=== PATIENT | male | born 1950 | race American Indian/Alaskan Native ===

== ENCOUNTER 2016-12-28 10:37 | Emergency (ER) | payer MEDICARE ==
--- NOTE | 2016-12-28 10:52 | Emergency Department Report ---
Chief Complaint: High BP Stated Complaint: ELEVATED BP/CHEST DISCOMFORT/ Time Seen by Provider: 12/28/16 10:48 - HPI History of Present Illness: PT states he had a little discomfort in his chest this morning. PT states he was concerned because his bp was elevated - ROS Review of Systems: - swelling + chest discomfort - Exam Vital Signs: Vital Signs 12/28/16 10:45 Temperature 97.9 F Pulse Rate 78 Respiratory 16 Rate Blood Pressure 161/104 O2 Sat by Pulse 100 Oximetry Physical Exam: PT looks well, non toxic. no acute resp distress gcs 15 no focal weakness MSE screening note: Focused history and physical exam performed. Due to findings the following was ordered: ekg, labs, xr ED Disposition for MSE Condition: Stable
[2016-12-28 11:14] LABS: Basophils % (Auto) 0.6 % (0.0-1.8); Eosinophils % (Auto) 3.5 % (0.0-4.3); Hematocrit 43.9 % (35.5-45.6); Hemoglobin 14.4 gm/dl (11.8-15.2); Mean Corpuscular HGB Conc 33 % (32-34); Mean Corpuscular Volume 74 fl (84-94); Platelet Count 225 K/mm3 (140-440); Red Blood Count 5.91 M/mm3 (3.65-5.03); Red Cell Distribution Width 15.1 % (13.2-15.2); White Blood Count 6.6 K/mm3 (4.5-11.0)
[2016-12-28 11:19] LABS: Mean Corpuscular Hemoglobin 24 pg (28-32)
--- NOTE | 2016-12-28 11:30 | XRay Report ---
ROUTINE CHEST, TWO VIEWS: HISTORY: chest pain. The trachea, heart, mediastinal contour, lung marsh and bony thorax are unremarkable. IMPRESSION: Unremarkable chest x-ray.
[2016-12-28 11:33] LABS: Blood Urea Nitrogen 12 mg/dL (9-20); Calcium 8.9 mg/dL (8.4-10.2); Carbon Dioxide 22 mmol/L (22-30); Glucose 100 mg/dL (75-100)
[2016-12-28 11:34] LABS: Anion Gap 19 mmol/L; Potassium 4.1 mmol/L (3.6-5.0); Sodium 136 mmol/L (137-145)
[2016-12-28] MEDS ORDERED: ASPIRIN PO ONE (15:34)
--- NOTE | 2016-12-28 17:20 | Emergency Department Report ---
ED General Adult HPI - General Chief complaint: High BP Stated complaint: ELEVATED BP/CHEST DISCOMFORT/ Time Seen by Provider: 12/28/16 10:48 Source: patient Mode of arrival: Ambulatory Limitations: No Limitations - History of Present Illness Initial comments: Patient is a 66-year-old male past medical history of diabetes and hypertension. Who presents with left arm pain. He states that he took his blood pressure this morning that was elevated. He also states that his left arm "feels tired." Patient states that symptoms are mild and that his symptoms occurred yesterday while he was at [employer]. Nothing makes his symptoms better or worse. Patient denies having any chest pain or any arm pain. He states that he's had friends who have had heart attacks and he was concerned about it and that's the reason why he is in the ED. She denies having any nausea or vomiting. Patient denies having any family history of heart attacks. Patient denies having any cardiac history. He is compliant with his diabetes and high blood pressure medication. Severity scale (0 -10): 0 - Related Data Home Medications Medication Instructions Recorded Confirmed Last Taken Unobtainable [Unobtainable] 06/15/14 06/15/14 Unknown Allergies Allergy/AdvReac Type Severity Reaction Status Date / Time No Known Allergies Allergy Unverified 06/15/14 20:06 ED Review of Systems ROS: Stated complaint: ELEVATED BP/CHEST DISCOMFORT/ Other details as noted in HPI Constitutional: denies: chills, fever Eyes: denies: eye pain, eye discharge, vision change ENT: denies: ear pain, throat pain Respiratory: denies: cough, shortness of breath, wheezing Cardiovascular: denies: chest pain, palpitations Endocrine: no symptoms reported Gastrointestinal: denies: abdominal pain, nausea, diarrhea Genitourinary: denies: urgency, dysuria Musculoskeletal: other (left arm tiredness). denies: back pain, joint swelling , arthralgia Skin: denies: rash, lesions Neurological: denies: headache, weakness, paresthesias Psychiatric: denies: anxiety, depression Hematological/Lymphatic: denies: easy bleeding, easy bruising ED Past Medical Hx - Past Medical History Hx Hypertension: Yes Hx Diabetes: Yes Additional medical history: High Cholesterol - Surgical History Past Surgical History?: No - Social History Smoking Status: Never Smoker Substance Use Type: None - Medications Home Medications: Home Medications Medication Instructions Recorded Confirmed Last Taken Type Unobtainable [Unobtainable] 06/15/14 06/15/14 Unknown History ED Physical Exam - General Limitations: No Limitations General appearance: alert, in no apparent distress - Head Head exam: Present: atraumatic, normocephalic - Eye Eye exam: Present: normal appearance - ENT ENT exam: Present: mucous membranes moist - Neck Neck exam: Present: normal inspection - Respiratory Respiratory exam: Present: normal lung sounds bilaterally. Absent: respiratory distress - Cardiovascular Cardiovascular Exam: Present: regular rate, normal rhythm. Absent: systolic murmur, diastolic murmur, rubs, gallop - GI/Abdominal GI/Abdominal exam: Present: soft, normal bowel sounds - Rectal Rectal exam: Present: deferred - Extremities Exam Extremities exam: Present: normal inspection - Back Exam Back exam: Present: normal inspection - Neurological Exam Neurological exam: Present: alert, oriented X3 - Psychiatric Psychiatric exam: Present: normal affect, normal mood - Skin Skin exam: Present: warm, dry, intact, normal color, other (vitiligo). Absent: rash ED Course Vital Signs 12/28/16 12/28/16 10:45 12:25 Temperature 97.9 F 98.2 F Pulse Rate 78 67 Respiratory 16 14 Rate Blood Pressure 161/104 Blood Pressure 141/91 [Right] O2 Sat by Pulse 100 96 Oximetry - Reevaluation(s) Reevaluation #1: 12/28/16 17:29 Repeat troponin is negative patient states that he is in no pain. Patient's also signs are within the normal limits. Discussed with patient that he should follow up with his primary care physician. ED Medical Decision Making - Lab Data Result diagrams: 12/28/16 10:59 12/28/16 10:59 Lab Results 12/28/16 12/28/16 12/28/16 Range/Units 10:59 10:59 10:59 WBC 6.6 (4.5-11.0) K/mm3 RBC 5.91 H (3.65-5.03) M/mm3 Hgb 14.4 (11.8-15.2) gm/dl Hct 43.9 (35.5-45.6) % MCV 74 L (84-94) fl MCH 24 L (28-32) pg MCHC 33 (32-34) % RDW 15.1 (13.2-15.2) % Plt Count 225 (140-440) K/mm3 Lymph % (Auto) 27.2 (13.4-35.0) % Vermilion % (Auto) 7.5 H (0.0-7.3) % Eos % (Auto) 3.5 (0.0-4.3) % Baso % (Auto) 0.6 (0.0-1.8) % Lymph # 1.8 (1.2-5.4) K/mm3 Vermilion # 0.5 (0.0-0.8) K/mm3 Eos # 0.2 (0.0-0.4) K/mm3 Baso # 0.0 (0.0-0.1) K/mm3 Seg Neutrophils % 61.2 (40.0-70.0) % Seg Neutrophils # 4.1 (1.8-7.7) K/mm3 Sodium 136 L (137-145) mmol/L Potassium 4.1 (3.6-5.0) mmol/L Chloride 99.0 (98-107) mmol/L Carbon Dioxide 22 (22-30) mmol/L Anion Gap 19 mmol/L BUN 12 (9-20) mg/dL Creatinine 1.0 (0.8-1.5) mg/dL Estimated GFR > 60 ml/min BUN/Creatinine Ratio 12.00 % Glucose 100 (75-100) mg/dL Calcium 8.9 (8.4-10.2) mg/dL Troponin T < 0.010 (0.00-0.029) ng/mL 12/28/16 Range/Units 16:08 WBC (4.5-11.0) K/mm3 RBC (3.65-5.03) M/mm3 Hgb (11.8-15.2) gm/dl Hct (35.5-45.6) % MCV (84-94) fl MCH (28-32) pg MCHC (32-34) % RDW (13.2-15.2) % Plt Count (140-440) K/mm3 Lymph % (Auto) (13.4-35.0) % Vermilion % (Auto) (0.0-7.3) % Eos % (Auto) (0.0-4.3) % Baso % (Auto) (0.0-1.8) % Lymph # (1.2-5.4) K/mm3 Vermilion # (0.0-0.8) K/mm3 Eos # (0.0-0.4) K/mm3 Baso # (0.0-0.1) K/mm3 Seg Neutrophils % (40.0-70.0) % Seg Neutrophils # (1.8-7.7) K/mm3 Sodium (137-145) mmol/L Potassium (3.6-5.0) mmol/L Chloride (98-107) mmol/L Carbon Dioxide (22-30) mmol/L Anion Gap mmol/L BUN (9-20) mg/dL Creatinine (0.8-1.5) mg/dL Estimated GFR ml/min BUN/Creatinine Ratio % Glucose (75-100) mg/dL Calcium (8.4-10.2) mg/dL Troponin T < 0.010 (0.00-0.029) ng/mL - EKG Data -: EKG Interpreted by Me - EKG Data 12/28/16 17:30 EKG shows normal sinus rhythm, normal axis and no ST segment elevations or T- wave inversions. - Radiology Data Radiology results: report reviewed, image reviewed Chest x-ray: Shows no acute cardiopulmonary disease. - Medical Decision Making Chief medical diagnosis: Left arm muscle pain sign differential medical diagnosis: Non-STEMI, pneumothorax, hypokalemia I will get CBC, CMP, troponin, EKG, chest x-ray I will also get the patient 325mg of aspirin in case he has a non-STEMI. Patient's chest x-ray and lab work are unremarkable Patient's 2 troponins are negative his clinical symptoms are not concerning for a heart attack. Patient's EKG is within within the normal limits. I will send the patient home for follow-up with his primary care provider. Discussed plan with patient he agrees with plan. Additional verbal discharge instructions were given. Critical care attestation.: If time is entered above; I have spent that time in minutes in the direct care of this critically ill patient, excluding procedure time. ED Disposition Clinical Impression: Left arm pain Disposition: DC-01 TO HOME OR SELFCARE Is pt being admited?: No Does the pt Need Aspirin: No Condition: Stable Additional Instructions: Please follow-up with your doctor. Referrals: BOBBY OLIVARES MD [Primary Care Provider] - 3-5 Days Time of Disposition: 17:34
[2016-12-28 18:16] VITALS: BP 128/74
== END 2016-12-28 18:16 | disposition home or self-care (01) ==
LOC: ED 10:37
DX: M79.602 Pain in left arm (principal); I10 Essential (primary) hypertension; E11.9 Type 2 diabetes mellitus without complications; E78.00 Pure hypercholesterolemia, unspecified
CPT/HCPCS: 36415; 71020; 80048; 84484; 85025; 93005; 93010